=== PATIENT | male | born 1985 | race African-American/Black ===

== ENCOUNTER 2016-09-29 02:01 | Emergency (ER) | payer OTHER ==
[2016-09-29 02:15] VITALS: BP 119/75; PULSE 88; TEMP 98.1; BMI 21.7
--- NOTE | 2016-09-29 02:36 | PDOC ---
History of Present Illness - General History Source: Patient Exam Limitations: No Limitations - History of Present Illness Initial Comments: 09/29/16 04:40 The patient is a 31 year old male with no significant PMHx who presents to the ED with headache today. Patient reports that he recently saw a neurologist for a pinched nerve that caused numbness and weakness in his left arm. 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 Today, he reports a headache that does not resolve with Tylenol. He believes it may have something to do with his cyst. He reports marijuana use. He reports a poor appetite and sleeping pattern. He denies any other complaints. <Nikki Frye - Last Filed: 09/29/16 04:44> <Mely Harkins - Last Filed: 09/29/16 06:27> - General Chief Complaint: Head/Neck problem Stated Complaint: HEADACHE Time Seen by Provider: 09/29/16 02:21 Past History <Nikki Frye - Last Filed: 09/29/16 04:44> - Past Medical History Asthma: Yes - Immunization History Td Vaccination: Yes TDAP Vaccination: Yes Immunization Up to Date: Yes - Psycho/Social/Smoking Cessation Hx Suicidal Ideation: No Smoking Status: Yes Smoking History: Unknown if ever smoked Years of Tobacco Use: 3 Number of Cigarettes Smoked Daily: 20 <Mely Harkins - Last Filed: 09/29/16 06:27> - Past Medical History Allergies/Adverse Reactions: Allergies Allergy/AdvReac Type Severity Reaction Status Date / Time No Known Allergies Allergy Verified 05/07/12 00:11 Home Medications: Ambulatory Orders NK [No Known Home Medication] 09/29/16 Review of Systems - Review of Systems Able to Perform ROS?: Yes Comments:: 09/29/16 04:40 GENERAL/CONSTITUTIONAL: No fever or chills. Decreased appetite. HEAD, EYES, EARS, NOSE AND THROAT: No change in vision. No ear pain or discharge. No sore throat. CARDIOVASCULAR: No chest pain or shortness of breath. RESPIRATORY: No cough, wheezing, or hemoptysis. GASTROINTESTINAL: No nausea, vomiting, diarrhea or constipation. GENITOURINARY: No dysuria, frequency, or change in urination. MUSCULOSKELETAL: No joint or muscle swelling or pain. No neck or back pain. SKIN: No rash NEUROLOGIC: + left arm weakness and numbness, headache. No vertigo, loss of consciousness. ENDOCRINE: No increased thirst. No abnormal weight change. HEMATOLOGIC/LYMPHATIC: No anemia, easy bleeding, or history of blood clots. ALLERGIC/IMMUNOLOGIC: No hives or skin allergy. <Herminia Fryeobnato Saldana - Last Filed: 09/29/16 04:44> *Physical Exam - Vital Signs Last Vital Signs Temp Pulse Resp BP Pulse Ox 98.1 F 88 18 119/75 100 09/29/16 02:08 09/29/16 02:08 09/29/16 02:08 09/29/16 02:08 09/29/16 02:08 - Physical Exam Comments: 09/29/16 04:42 GENERAL: Awake, alert, and fully oriented, in no acute distress, smells like marijuana HEAD: No signs of trauma EYES: PERRLA, EOMI, sclera anicteric, conjunctiva clear ENT: Auricles normal inspection, hearing grossly normal, nares patent, oropharynx clear without exudates. Moist mucosa NECK: Old scar on left side of neck. Normal ROM, supple, no lymphadenopathy, JVD , or masses LUNGS: Breath sounds equal, clear to auscultation bilaterally. No wheezes, and no crackles HEART: Regular rate and rhythm, normal S1 and S2, no murmurs, rubs or gallops ABDOMEN: Soft, nontender, normoactive bowel sounds. No guarding, no rebound. No masses EXTREMITIES: Normal range of motion, no edema. No clubbing or cyanosis. No cords, erythema, or tenderness NEUROLOGICAL: Weakness in left arm. Cranial nerves II through XII grossly intact. Normal speech, normal gait SKIN: Warm, Dry, normal turgor, no rashes or lesions noted. <Herminia Fryeobhan Shana - Last Filed: 09/29/16 04:44> - Vital Signs Last Vital Signs Temp Pulse Resp BP Pulse Ox 98.1 F 88 18 119/75 100 09/29/16 02:08 09/29/16 02:08 09/29/16 02:08 09/29/16 02:08 09/29/16 02:08 <Mely Harkins - Last Filed: 09/29/16 06:27> ED Treatment Course - RADIOLOGY Radiograph Interpretation: 09/29/16 04:[address] by Dr[address] Rene Holman Impression: No acute intracranial hemorrhage mass effect or midline shift. Pineal gland calcification noted. If clinically indicated followup outpatient MRI brain with contrast may be needed for further evaluation and workup of the patient's pineal gland cystic process. - Medications Given in the ED: ED Medications Discontinued Medications Generic Name Dose Route Start Last Admin Trade Name Saranya PRN Reason Stop Dose Admin Acetaminophen 650 mg 09/29/16 04:23 09/29/16 04:38 Tylenol - PO 09/29/16 04:24 650 mg ONCE ONE Administration Diphenhydramine HCl 50 mg 09/29/16 04:23 09/29/16 04:38 Benadryl - PO 09/29/16 04:24 50 mg ONCE ONE Administration Metoclopramide HCl 10 mg 09/29/16 04:24 09/29/16 04:38 Reglan Injection - IM 09/29/16 04:25 10 mg ONCE ONE Administration <Nikki Frye - Last Filed: 09/29/16 04:44> Medical Decision Making - Medical Decision Making 09/29/16 03:26 Patient Name: Luther Chun THIS IS A PRELIMINARY REPORT FROM [facility] EXAM: CT head without contrast IMAGES: 138 EXAM DATE AND TIME: 2016-09-29 02: 38:49.0 REASON FOR EXAM: 31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 COMPARISON: None. FINDINGS: Pineal gland calcification noted. No acute intracranial hemorrhage mass effect or midline shift. Thomas-white differentiation is maintained. Ventricles sulci and basilar cisterns appear unremarkable. Calvarium is intact. The sinuses and mastoid air cells are clear. IMPRESSION No acute intracranial hemorrhage mass effect or midline shift. Pineal gland calcification noted. If clinically indicated followup outpatient MRI brain with contrast may be needed for further evaluation and workup of the patient's pineal gland cystic process. THIS DOCUMENT HAS BEEN ELECTRONICALLY SIGNED 09/29/16 06:24 Pt comes with a headache and he is worried that it is due to the "tumor" in his head. Pt ahppend to have a cyst on the pineal gland that was found incidentally. Pt injured himself in the past and he has a pinched nerve and weakness in the left arm. 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 Today CT scn shows pineal calcification, but no other pathology. Pt's exam is normal, and he was treated with meds for the GUARDADO. He took some meds for the GUARDADO with no relief and he panicked. Pt admits that he has not been eating well or sleeping well and that he smokes pot. I advised him to quit smoking and to eat well and take better care of self. Pt will follow with neuro. <Mely Harkins - Last Filed: 09/29/16 06:27> *DC/Admit/Observation/Transfer - Attestations Scribe Attestion: 09/29/16 04:42 Documentation prepared by Nikki Frye, acting as medical doctor nuclear medicine for Mely Harkins MD. <Nikki Frye - Last Filed: 09/29/16 04:44> <Mely Harkins - Last Filed: 09/29/16 06:27> Diagnosis at time of Disposition: Headache - Discharge Dispostion Disposition: HOME Condition at time of disposition: Stable - Referrals Referrals: Edil Swain MD [Primary Care Provider] - - Patient Instructions Printed Discharge Instructions: DI for Headache
[2016-09-29] MEDS ORDERED: diphenhydrAMINE HCL 25 MG CAPSULE (FP) PO ONE ×2 (04:23→04:31)
[2016-09-29] MEDS ORDERED: ACETAMINOPHEN 325 MG TABLET (FP) PO ONE (04:23)
[2016-09-29] MEDS ORDERED: METOCLOPRAMIDE HCL INJECTION 10 MG/2 ML VIAL IM ONE (04:24)
[2016-09-29] MEDS ORDERED: ACETAMINOPHEN 325 MG TABLET (FP) ONE (04:30)
[2016-09-29] MEDS ORDERED: METOCLOPRAMIDE HCL INJECTION 10 MG/2 ML VIAL ONE (04:30)
== END 2016-09-29 04:44 | disposition home or self-care (01) ==
LOC: JER 02:01
DX: R51 Headache (principal)
CPT/HCPCS: 70450-TC; 99282-25